=== PATIENT | male | born 1945 | race Caucasian/White ===

== ENCOUNTER 2020-09-20 11:51 | Emergency (ER) | payer MEDICARE, SELFPAY ==
[2020-09-20] VITALS (13 sets, daily range): BP systolic 135–160; BP diastolic 68–94; PULSE 57–78; RESP 13–20; TEMP 36.2–36.7; O2SAT 99–100
--- NOTE | 2020-09-20 11:54 | ECG_ITS ---
Measurements Intervals [place] Rate: 72 P: 16 [place]: 190 QRS: -3 QRSD: 101 T: 22 QT: 379 QTc: 416 Interpretive Statements SINUS RHYTHM ATRIAL COUPLET DELAYED PRECORDIAL R/S TRANSITION BORDERLINE ST-T WAVE ABNORMALITY- INFERIOR LEADS BORDERLINE ECG Electronically Signed On 09-20-2020 12:51:57 CDT by Augustin Tijerina D.O.
[2020-09-20 12:18] LABS: Basophils Absolute Auto 0.1 K/mm3 (0.0-0.1); Basophils Percent Auto 0.8 % (0.2-1.2); Eosinophils Absolute Auto 0.1 K/mm3 (0-0.3); Eosinophils Percent Auto 0.8 % (0-4.4); Hemoglobin 14.9 g/dL (14.0-18.0); Immature Granulocyte Absolute 0.02 K/mm3 (0.00-0.031); Immature Granulocyte Percent A 0.3 % (0-0.5); Lymphocytes Absolute Auto 1.16 K/mm3 (0.9-3.2); Lymphocytes Percent Auto 18.4 % (18.3-44.2); Mean Corpuscular HGB Conc 33.9 g/dl (32-36); Mean Corpuscular Hemoglobin 30.9 pg (26-34); Mean Corpuscular Volume 91.3 fl (80-100); Mean Platelet Volume 9.9 fl (7.4-10.4); Monocytes Absolute Auto 0.5 K/mm3 (0.1-0.6); Monocytes Percent Auto 7.9 % (2.6-8.5); Neutrophils Absolute Auto 4.5 K/mm3 (1.3-6.7); Neutrophils Percent Auto 71.8 % (45.5-73.1); Platelet Count Result 211 k/mm3 (150-375); Red Blood Count 4.82 M/mm3 (4.6-6.20); White Blood Count 6.3 K/mm3 (4.5-10.0)
[2020-09-20 12:30] LABS: Anion Gap 4 mmol/L (8-16); Blood Urea Nitrogen 16 mg/dL (9-20); Calcium 8.9 mg/dL (8.4-10.2); Carbon Dioxide 29 mmol/L (22-30); Chloride 100 mmol/L (98-107); Estimated CRCL calculation 58 ml/min; Estimated Glomerular Filt Rate > 60; Glucose 142 mg/dL (75-110); Potassium 3.9 mmol/L (3.4-5.0); Sodium 133 mmol/L (137-145)
[2020-09-20 14:41] LABS: Troponin I < 0.012 ng/mL (0.000-0.034)
--- NOTE | 2020-09-20 16:51 | ED.GENADULT ---
HPI - General Adult General Chief complaint: Dizziness Stated complaint: Elevated BP, lightheaded today Time Seen by Provider: 09/20/20 13:30 History of Present Illness HPI narrative: Patient is a 75-year-old male who presents ER with episodes of lightheadedness that occurred today. Reports they would last for seconds at a time. He will then would occasionally feel like he had palpitations or dropped heartbeat. He has not had this before. It began after having a poor night sleep and having cups coffee. He has been having some stress about [place]. No cardiac history. No focal weakness or numbness or slurred speech that he experienced. Patient is able to ambulate with a steady gait and has had no falls. Patient does report that his blood pressures were elevated at home going into the 190s systolic. No chest pain or chest pressure. Related Data Home Medications Medication Instructions Recorded Confirmed aspirin 81 mg tablet,delayed 81 mg PO DAILY 05/05/19 09/03/20 release cholecalciferol (vitamin D3) 25 1,000 unit PO DAILY 05/05/19 09/03/20 mcg (1,000 unit) capsule Allergies Allergy/AdvReac Type Severity Reaction Status Date / Time No Known Allergies Allergy Verified 09/03/20 13:56 Review of Systems Review of Systems: All systems reviewed & are unremarkable except as noted in HPI and below Constitutional: Constitutional: Denies chills, Denies fever(s) and Denies weakness ENT: Reports dizziness and Denies sore throat Cardiovascular: Cardiovascular: Denies chest pain, Denies rapid heart rate and Denies radiating jaw, neck or arm pain Comments: Palpitations Respiratory: Respiratory: Denies cough and Denies dyspnea Gastrointestinal: Gastrointestinal: Denies abdominal pain, Denies nausea and Denies vomiting Neurologic: Denies vertigo, Denies syncope, Denies focal weakness and Denies numbness [facility] Past Medical History Medical History Hepatitis C antibody test negative (~04/27/17) History of hearing problem History of needle biopsy of prostate with negative result (~2013) Lactose intolerance Surgical History Surgical History History of adenoidectomy (~1949) History of cataract surgery (~04/02/19) History of colonoscopy (~11/02/08) History of vasectomy Family History Family History Father Acute myocardial infarction, Onset Age: 40 Mother Family history of malignant neoplasm of breast in first degree relative Social History Social History Smoking status: Never smoker Alcohol intake: current Gender identity (if verbalized by the patient): Female Exam Narrative: Exam Narrative: GENERAL: Well-appearing, well-nourished, and in no acute distress. HEAD: Normocephalic, atraumatic. EYES: PERRL and EOMI. CHEST: Clear to auscultation. No respiratory distress. HEART: Regular rate and rhythm. Normal peripheral pulses. ABDOMEN: Soft, nontender, nondistended. EXTREMITIES: Normal range of motion. No edema. SKIN: Warm, dry, no rash. NEURO: Ambulates with a steady gait. Clear speech. Alert and oriented x3. PSYCH: Normal mood and affect. Course Course Emergency Course: Patient has had a couple PVCs on his cardiac nurse specialist as well as frequent PACs. Suspect patient is feeling his PVCs when he feels his palpitations. Hard to know if this is related to the lightheadedness as they have not been occurring at the same time. No runs of PVCs on the monitor. Patient may follow-up with his PCP for further evaluation potential outpatient Holter monitoring. Discussed he should avoid caffeine and reduce stress. Vital Signs Vital signs: Vital Signs Temperature 97.2 F L 09/20/20 11:59 Pulse Rate 72 09/20/20 11:59 Respiratory Rate 18 09/20/20 1
== END 2020-09-20 17:17 | disposition home or self-care (01) ==
PROVIDERS: Emergency Medicine; Emergency Provider Emergency Medicine; PCP Family Medicine
DX: I49.1 Atrial premature depolarization (principal); I49.3 Ventricular premature depolarization; E73.9 Lactose intolerance, unspecified; Z98.49 Cataract extraction status, unspecified eye
CPT/HCPCS: 36415; 80048; 84484; 85025; 93005; 99284

== ENCOUNTER → 2020-11-04 10:01 | Outpatient (CLI) | payer MEDICARE, SELFPAY ==
--- NOTE | ~2020-11-04 | XR_ITS ---
EXAMINATION: XR shoulder RT min 2V DATE: 11/04/2020 11:01 INDICATION: Right shoulder pain. TECHNIQUE: 4 views of right shoulder were obtained. COMPARISON: None. FINDINGS: Bone alignment is normal. No fracture. There is mild osteoarthritis of glenohumeral joint c haracterized by tiny marginal osteophytes. There is mild acromioclavicular joint osteoarthritis. IMPRESSION: 1. Mild polyarticular osteoarthritis. Reviewed, dictated and finalized at location B.
== END ==
PROVIDERS: PCP Family Medicine; Visit Provider Physician Assistant
DX: M19.011 Primary osteoarthritis, right shoulder (principal)
CPT/HCPCS: 73030

== ENCOUNTER 2021-07-14 11:56 | Outpatient (CLI) | payer MEDICARE, SELFPAY ==
--- NOTE | ~2021-07-14 | XR_ITS ---
EXAMINATION: XR abdomen/kub 1V INDICATION: Gross hematuria TECHNIQUE: Supine views of the abdomen were obtained on 2 radiographs. COMPARISON: None FINDINGS: The bowel gas pattern is normal. There is a 2 mm calcification in the right pelvis. Calcifi ed atherosclerosis is noted. There is moderate lumbar spondylosis. IMPRESSION: 1. 2 mm calcification of the right pelvis which could reflect a phlebolith versus right distal ureter al stone. Correlate for right flank tenderness. Reviewed, dictated and finalized at location F. 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 2 mm calcification of the right pelvis which could reflect a phlebolith vers us right distal ureteral stone. Correlate for right flank tenderness.
== END 2021-07-14 11:57 | disposition home or self-care (01) ==
LOC: ANHIMG 12:00
PROVIDERS: PCP Family Medicine; Visit Provider Urology
DX: R31.0 Gross hematuria (principal)
CPT/HCPCS: 74018

== ENCOUNTER → 2021-09-05 10:13 | Outpatient (CLI) | payer MEDICARE, SELFPAY ==
--- NOTE | ~2021-09-05 | XR_ITS ---
XR hand LT 2V DATE: 09/05/2021 10:36 INDICATION: Left hand pain TECHNIQUE: AP and lateral views COMPARISON: None FINDINGS: There is polyarticular osteoarthritis involving particularly the triscaphe and first carpom etacarpal joints, second metacarpophalangeal joint, in addition to third and fourth metacarpophalange al and multiple interphalangeal joints. No fracture or dislocation, periosteal reaction or bone destruction. No erosive change is noted. IMPRESSION: Polyarticular osteoarthritis Reviewed, dictated and finalized at location A.
== END ==
PROVIDERS: PCP Family Medicine; Visit Provider Physician Assistant
DX: M79.642 Pain in left hand (principal); M19.042 Primary osteoarthritis, left hand
CPT/HCPCS: 73120

== ENCOUNTER → 2022-03-13 10:43 | Outpatient (CLI) | payer MEDICARE, SELFPAY ==
--- NOTE | ~2022-03-13 | XR_ITS ---
XR hip LT min 2V 03/13/2022 11:01 Indication: Left hip pain Procedure: 3 views left hip Comparison: No prior studies for comparison. Findings: There is mild osteoarthritis of the left hip. No fracture, subluxation or dislocation. Ther e is atherosclerosis. No significant soft tissue abnormality. No foreign bodies. Impression: 1: Mild osteoarthritis of the left hip. Reviewed, dictated and finalized at location A. Impression: 1: Mild osteoarthritis of the left hip.
== END ==
PROVIDERS: PCP Nurse Practitioner; Visit Provider Nurse Practitioner
DX: M16.12 Unilateral primary osteoarthritis, left hip (principal)
CPT/HCPCS: 73502

== ENCOUNTER 2022-08-25 08:29 | Outpatient (CLI) | payer MEDICARE, SELFPAY ==
--- NOTE | ~2022-08-25 | MR_ITS ---
EXAMINATION: MR lumbar spine wo con DATE: 08/25/2022 09:29 INDICATION: Other spondylosis, lumbosacral region. TECHNIQUE: Magnetic resonance imaging (MRI) of the lumbar spine was performed without intravenous con trast. COMPARISON: None FINDINGS: There is 8 degrees dextrocurvature of thoracolumbar spine. There is 3 mm retrolisthesis of L2 on L3 and L3 on L4. There is mild chronic anterior wedging of T12 vertebral body, likely physiolog ic. There is mildly decreased disc height at T11-T12, T12-L1, and L1-L2, severely decreased disc heig ht at L2-L3, mildly decreased disc height at L3-L4, moderately decreased disc height at L4-L5, and mi ldly decreased disc height at L5-S1. The distal spinal cord signal intensity is normal. The conus med ullaris is at L1-L2. The following disc levels are specifically discussed: L1-L2: The disc is bulging and has an annular fissure. There is mild right and moderate left facet tana int osteoarthritis. There is mild bilateral neural foraminal stenosis. There is mild central canal st enosis. L2-L3: The disc is bulging and has an annular fissure. There is moderate right and severe left facet joint osteoarthritis. There is moderate bilateral neural foraminal stenosis. There is mild central ca nal stenosis. L3-L4: The disc is bulging with superimposed right subarticular extrusion that abuts the right L4 ner ve root in right lateral recess. There is mild bilateral facet joint osteoarthritis. There is moderat e bilateral neural foraminal stenosis. There is mild central canal stenosis. There is moderate stenos is of right lateral recess. L4-L5: The disc is bulging and has an annular fissure. There is severe bilateral facet joint osteoart hritis. There is moderate right and mild left neural foraminal stenosis. There is mild central canal stenosis. L5-S1: The disc is bulging and has an annular fissure. There is severe bilateral facet joint osteoart hritis. There is mild bilateral neural foraminal stenosis. There is mild central canal stenosis. IMPRESSION: 1. Severe lumbar spondylosis. Reviewed, dictated and finalized at location A. 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
== END 2022-08-25 08:30 | disposition home or self-care (01) ==
PROVIDERS: PCP Family Medicine; Visit Provider Anesthesiology Pain Medicine
DX: M47.897 Other spondylosis, lumbosacral region (principal)
CPT/HCPCS: 72148

== ENCOUNTER 2023-05-15 06:34 | Outpatient (CLI) | payer MEDICARE, SELFPAY ==
--- NOTE | ~2023-05-15 | CT_ITS ---
EXAMINATION: CT abdomen pelvis wo/w con DATE: 05/15/2023 07:22 INDICATION: Gross hematuria TECHNIQUE: Computed tomography (CT) of the abdomen and pelvis was performed without and with 130 cc O mnipaque 350 intravenous contrast. The dose-length product was 1905.77 mGy-cm. Automated exposure con trol and iterative reconstruction technique were employed. COMPARISON: None. FINDINGS: There are multiple liver cysts, largest measuring 2.1 cm. Moderate size hiatal hernia. Ther e is interlobular septal thickening in the lung bases, possibly chronic interstitial disease. There i s atherosclerosis. There is fat-containing umbilical hernia. Enlarged prostate gland. Bladder wall th ickening. Nonobstructive bowel gas pattern. No lymphadenopathy. The spleen, pancreas, adrenal glands and left kidney are unremarkable. There is a small subcentimeter hypodensity of the right kidney, most likely benign cysts. Severe lumbar spondylosis with degenerati ve retrolisthesis at L2-3. No free air or free fluid. IMPRESSION: 1. Diffuse bladder wall thickening, most likely due to outlet obstruction or under distention, althou gh cystitis not excluded. Enlarged prostate gland. Reviewed, dictated and finalized at location L. 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 Diffuse bladder wall thickening, most likely due to outlet obstruction or un farhad distention, although cystitis not excluded. Enlarged prostate gland.
[2023-05-15 07:04] LABS: Estimated Glomerular Filt Rate 54
== END 2023-05-15 06:35 | disposition home or self-care (01) ==
PROVIDERS: PCP Family Medicine; Visit Provider Physician Assistant
DX: R31.0 Gross hematuria (principal)
CPT/HCPCS: 74178; Q9967

== ENCOUNTER 2024-03-13 10:51 | Outpatient (CLI) | payer MEDICARE, SELFPAY | END 2024-03-13 10:52 | disposition home or self-care (01) | LOC: ANHAUDIO 10:51 | PROVIDERS: PCP Family Medicine; Visit Provider Nurse Practitioner | DX: H90.3 Sensorineural hearing loss, bilateral (principal) | CPT/HCPCS: 92557; 92567 ==

== ENCOUNTER → 2025-05-06 11:24 | Outpatient (REF) | payer MEDICARE, SELFPAY ==
--- NOTE | 2025-05-06 11:24 | S_PTH ---
PATIENT: Bryce Phelps LOC: [facility]#:[id number] AGE/SX: 80/M ROOM: RE05/06/[address]: Vy Arora MD : 1945 BED: DIS: SPEC #: [id number] RECD: 05/06/25 12:05 STATUS: ORAL RELois #: [id number] ELSA: 05/06/25 11:[address]: Vy Arora DEPT: [facility] Surgical RECD BY: Louann eHss ENTERED: 05/06/25 12:07 SP TYPE: Surgical OTHR DR: Ute Gee DO Tissues: A - Skin B - Skin Procedures: Hematoxylin and Eosin Stain Gross and Microscopic Level 4
--- OUTSIDE RECORDS SUMMARY | 2025-05-06 13:04 | XMS_ITS | Clinical Summary ---
Author Organization [facility] [employer] Address [address] 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 This disclosure is being madepursuant to the Care Everywhere program and may not contain all information available regarding this patient. Last updated 18.[facility] [employer] Allergies No known active allergies Immunizations Immunization Administration Dates Next Due INFLUENZA VACCINE, HIGH-DOSE , QUADR. (FLUZONE HIGH-DOSE QUADRIVALENT; 65Y+), 0.7 ML ([id number]-[id number]) 03/29/2019 Social History Tobacco Use Types Packs/Day Years Used Date Smoking Tobacco: Never Assessed Sex and Gender Information Value Date Recorded Sex Assigned at Not on file Legal Sex Male 1:45 PM CDT Gender Identity Not on file Sexual Orientation Not on file Plan of Treatment Health Maintenance Due Date Last Done Comments DTAP/TDAP/TD VACCINES (1 - Tdap) 1964 PNEUMOCOCCAL VACCINE 50+ (1 of 1 - PCV) 1995 ZOSTER VACCINE (1 of 2) 1995 Respiratory Syncytial Virus (RSV) Vaccine Pt: or over 60 yrs (1 - 1-dose 75+ series) 2020 DEPRESSION SCREENING 06/25/2024 COVID-19 VACCINE (1 - 2023-2 5 season) 2025 INFLUENZA VACCINE (#1) 2025 03/29/2019 HEPATITIS B VACCINE Aged Out No longe r eligible based on patient's age to complete this topic HIB VACCINE Aged Out No longer eligi ble based on patient's age to complete this topic HPV VACCINE Aged Out No longer eligi ble based on patient's age to complete this topic MENINGOCOCCAL (Group B) VACC INE SHARED DECISION-MAKING Aged Out No longer eligibl e based on patient's age to complete this topic MENINGOCOCCAL GROUPS A/C/Y/W VACCINE Aged Out No longer eligible b ased on patient's age to complete this topic Insurance MEDICARE [facility]
== END ==
LOC: ANHLAB 11:24
PROVIDERS: PCP Family Medicine; Visit Provider Plastic Surgery
DX: C76.41 Malignant neoplasm of right upper limb (principal); L90.5 Scar conditions and fibrosis of skin; L57.8 Other skin changes due to chronic exposure to nonionizing radiation; L57.0 Actinic keratosis; L82.1 Other seborrheic keratosis
CPT/HCPCS: 88305